=== PATIENT | male | born 1960 | race Caucasian/White ===

== ENCOUNTER 2021-05-07 14:19 | Emergency (ER) | payer OTHER ==
[~2021-05-07] VITALS: Ht 182.9 cm; Wt 113.4 kg
[~2021-05-07 14:19] MED LIST: AMOXICILLIN875 MG PO
[2021-05-07 14:50] LABS: HEMOGLOBIN 14.6 gm/dl (14.0-17.5); RED BLOOD COUNT 5.05 M/UL (4.20-5.50); WHITE BLOOD COUNT 5.6 K/UL (4.5-11.0)
[2021-05-07 15:18] LABS: BUN/CREATININE RATIO 13 (0-10)
[2021-05-08 10:45] LABS: HEMOGLOBIN 14.6 gm/dl (14.0-17.5); WHITE BLOOD COUNT 4.9 K/UL (4.5-11.0)
[2021-05-08 10:53] LABS: BUN/CREATININE RATIO 15 (0-10)
[2021-05-09 03:23] LABS: HEMOGLOBIN 15.3 gm/dl (14.0-17.5); RED BLOOD COUNT 5.14 M/UL (4.20-5.50)
[2021-05-09 03:59] LABS: BUN/CREATININE RATIO 15 (0-10)
[2021-05-09] MEDS ORDERED: IBU800 MG PO (15:23)
[2021-05-09] MEDS ORDERED: CLONIDINE HCL0.2 MG PO (15:23)
[2021-05-09] MEDS ORDERED: GLIPIZIDE10 MG PO (15:24)
[2021-05-09] MEDS ORDERED: HYDROXYZINE HCL10 MG PO (15:24)
[2021-05-09] MEDS ORDERED: CLARITIN10 MG PO (15:25)
[2021-05-09] MEDS ORDERED: ISOSORBIDE MONO30 MG PO (15:25)
[2021-05-09] MEDS ORDERED: METFORMIN HCL1000 MG PO (15:26)
[2021-05-09] MEDS ORDERED: OMEPRAZOLE20 MG PO (15:26)
[2021-05-09] MEDS ORDERED: LOPRESSOR100 MG PO (15:26)
[2021-05-09] MEDS ORDERED: VITAMIN D21250 MCG PO (15:27)
[2021-05-09] MEDS ORDERED: PROVENTIL HFA6.7 GM INH (15:28)
[2021-05-09] MEDS ORDERED: METHOCARBAMOL500 MG PO (15:28)
[2021-05-09] MEDS ORDERED: HYDROCODON-ACE1 EAC2 PO (15:33)
[2021-05-09] MEDS ORDERED: AMLODIPINE BESY10 MG PO (15:35)
[2021-05-09] MEDS ORDERED: CLOPIDOGREL75 MG PO (17:18)
[2021-05-09] MEDS ORDERED: ATORVASTATIN CA20 MG PO (17:18)
[2021-05-09] MEDS ORDERED: ASPIRIN 325MG325 MG PO (17:18)
== END 2021-05-09 18:35 | disposition home or self-care (01) ==
LOC: ER1 14:19 → CDU 05-09 09:23
PROVIDERS: Internal Medicine; Physician Assistant Medical; Student in an Organized Health Care Education/Training Program
DX: U07.1 COVID-19 (principal); G45.9 Transient cerebral ischemic attack, unspecified; I63.9 Cerebral infarction, unspecified; R53.1 Weakness; R29.705 NIHSS score 5; I10 Essential (primary) hypertension; E11.9 Type 2 diabetes mellitus without complications; F17.210 Nicotine dependence, cigarettes, uncomplicated; J44.9 Chronic obstructive pulmonary disease, unspecified; E78.5 Hyperlipidemia, unspecified
CPT/HCPCS: ECHO; 70450; 70496; 70498; 70551; 71045; 80048; 80053; 80061; 82550; 82553; 82962; 83036; 83735; 84484; 85025; 85027; 85379; 92610; 93005; 93306; 97161; 97166; 97530; 99285; J1650; J2405; Q9967; U0002